=== PATIENT | male | born 1950 | race Caucasian/White ===

== ENCOUNTER 2022-03-05 14:01 | Inpatient (IN) ==
[2022-03-05] MEDS ORDERED: SODIUM CHLORIDE 0.9% 1,000 ML IV STA (14:56)
[2022-03-05 16:08] LABS: Bilirubin,Urine Negative (Negative); Blood, Urine Large mg/dL (Negative); Glucose,Urine (UA) Negative (Negative); Ketones,Urine 15 mg/dL (Negative); Nitrite,Urine Positive (Negative); Protein,Urine 30 mg/dL (Negative); Urine Appearance CLOUDY (Clear); Urine Color Yellow (Yellow); Urine Urobilinogen 0.2 eU/dL (<2.0)
[2022-03-05 16:11] LABS: Amorphous Crystals,Urine Occasional /HPF (Few); Mucus,Urine Few /LPF (Occasional); RBC,Urine 23 /HPF (0-4)
[2022-03-05 16:14] LABS: Basophils % 0.1 % (0.0-0.8); Eosinophils % 0.1 % (0.00-10.9); Hematocrit 31.5 VOL% (42.0-52.0); Immature Granulocytes % 0.8 %; Immature Granulocytes Absolute 0.09 #; Lymphocytes # 1.1 10*3/uL (1.4-4.0); Lymphocytes % 9.6 % (21.2-54.2); Mean Corpuscular HGB Conc 31.7 GM/DL (32-36); Mean Corpuscular Volume 78.6 FL (87-102); Mean Platelet Volume 9.2 FL (9.6-12.0); Monocytes # 0.4 10*3/uL (0.11-0.8); Monocytes % 3.4 % (1.7-12.7); Platelet Count 296 T/CUMM (130-400); Red Blood Count 4.01 MC/CUMM (3.8-5.5); Red Cell Distribution Width 15.9 % (9.3-17.3); White Blood Count 11.9 T/CUMM (4-12)
[2022-03-05 16:27] LABS: Alanine Aminotransferase 12 U/L (16-61); Albumin 1.8 G/DL (3.4-5.0); Alkaline Phosphatase 86 U/L (45-117); Amylase 18 U/L (25-115); Aspartate Amino Transferase 20 U/L (0-37); Bilirubin,Total < 0.39 MG/DL (0.20-1.00); Blood Urea Nitrogen 12 MG/DL (7-18); Carbon Dioxide 25 MMOL/L (21-32); Chloride 92 MMOL/L (98-107); Glucose 80 MG/DL (74-106); Osmolality,Calculated 245.8 MOS/KG (273-304); Potassium 4.5 MMOL/L (3.5-5.1); Sodium 123 MMOL/L (136-145); Total Protein 6.5 G/DL (6.4-8.2)
[2022-03-05] MEDS ORDERED: cefTRIAXone 1,000 MG in SODIUM CHLORIDE 0.9% 100 ML IV STA (17:03)
[2022-03-05] MEDS ORDERED: ONDANSETRON 4 MG/2 ML VIAL IV STA ×2 (17:07→17:28)
[2022-03-05] MEDS ORDERED: hydrALAZINE 20 MG/1 ML VIAL IV PRN (18:03)
[2022-03-05] MEDS ORDERED: ONDANSETRON 4 MG/2 ML VIAL IV PRN (18:03)
[2022-03-05] MEDS ORDERED: DOCUSATE SODIUM 100 MG CAPSULE PO PRN (18:03)
[2022-03-05] MEDS ORDERED: ACETAMINOPHEN 325 MG TABLET PO PRN (18:03)
[2022-03-05] MEDS: SODIUM CHLORIDE 0.9% 1,000 ML IV SCH (18:50)
[2022-03-05] MEDS: ALBUTEROL 2.5 MG/3 ML NEB RESP TX SCH (19:16)
[2022-03-05] MEDS: AZITHROMYCIN INJ 500 MG in SODIUM CHLORIDE 0.9% 250 ML IV SCH (20:32)
[2022-03-05] MEDS: ENOXAPARIN 40 MG/0.4 ML SYRINGE SUBCUT SCH (21:10)
[2022-03-05] MEDS ORDERED: SODIUM CHLORIDE 0.9% 1,000 ML IV ONE (23:32)
[2022-03-06] MEDS: ALBUTEROL 2.5 MG/3 ML NEB RESP TX SCH ×4 (02:15→21:06)
[2022-03-06 05:09] LABS: Basophils % 0.1 % (0.0-0.8); Hemoglobin 9.2 GM/DL (14.0-18.0); Immature Granulocytes % 1.3 %; Immature Granulocytes Absolute 0.18 #; Lymphocytes # 0.9 10*3/uL (1.4-4.0); Mean Corpuscular HGB Conc 30.7 GM/DL (32-36); Mean Corpuscular Volume 81.7 FL (87-102); Mean Platelet Volume 8.9 FL (9.6-12.0); Monocytes # 0.4 10*3/uL (0.11-0.8); Neutrophils % 88.6 % (38.7-73.9); Platelet Count 283 T/CUMM (130-400); Red Blood Count 3.67 MC/CUMM (3.8-5.5); White Blood Count 13.4 T/CUMM (4-12)
[2022-03-06 06:28] LABS: Blood Urea Nitrogen 11 MG/DL (7-18); Calcium 7.9 MG/DL (8.5-10.1); Carbon Dioxide 21 MMOL/L (21-32); Chloride 97 MMOL/L (98-107); Cholesterol 99 MG/DL (50-200); Glucose 81 MG/DL (74-106); HDL Cholesterol 32 MG/DL (40-60); Osmolality,Calculated 252.2 MOS/KG (273-304); Potassium 3.9 MMOL/L (3.5-5.1); Risk Ratio 3.09; Sodium 127 MMOL/L (136-145); Thyroid Stimulating Hormone 0.036 uIU/ml (0.358-3.74); Triglycerides 43 MG/DL (2-150); VLDL Cholesterol 8.6 MG/DL
[2022-03-06] MEDS ORDERED: cefTRIAXone 1,000 MG in SODIUM CHLORIDE 0.9% 100 ML IV SCH (09:00)
[2022-03-06 09:14] LABS: Free T4 (Free Thyroxine) 1.72 NG/DL (0.76-1.46)
[2022-03-06] MEDS: PANTOPRAZOLE 40 MG VIAL IV SCH (21:08)
[2022-03-06] MEDS: ENOXAPARIN 40 MG/0.4 ML SYRINGE SUBCUT SCH (21:08)
[2022-03-06] MEDS: AZITHROMYCIN INJ 500 MG in SODIUM CHLORIDE 0.9% 250 ML IV SCH (21:09)
[2022-03-06] MEDS: TRIAMCINOLONE 0.1% CREAM 15 GM TUBE TOP SCH (22:30)
[2022-03-07] MEDS: ALBUTEROL 2.5 MG/3 ML NEB RESP TX SCH ×4 (00:49→19:38)
[2022-03-07] MEDS: SODIUM CHLORIDE 0.9% 1,000 ML IV SCH ×2 (04:54→04:55)
[2022-03-07 06:00] LABS: Basophils % 0.1 % (0.0-0.8); Immature Granulocytes % 1.2 %; Immature Granulocytes Absolute 0.26 #; Lymphocytes # 0.7 10*3/uL (1.4-4.0); Lymphocytes % 3.2 % (21.2-54.2); Mean Corpuscular Volume 82.2 FL (87-102); Mean Platelet Volume 8.9 FL (9.6-12.0); Monocytes # 0.5 10*3/uL (0.11-0.8); Monocytes % 2.3 % (1.7-12.7); Neutrophils % 93.2 % (38.7-73.9); Platelet Count 294 T/CUMM (130-400); Red Blood Count 3.53 MC/CUMM (3.8-5.5); Red Cell Distribution Width 16.1 % (9.3-17.3); White Blood Count 22.6 T/CUMM (4-12)
[2022-03-07 06:39] LABS: Lymphocytes 1 % (20-55); Platelet Estimate Adequate; Total Cells Counted 100
[2022-03-07 06:40] LABS: Hypochromia Slight; Microcytosis Slight
[2022-03-07 07:18] LABS: Blood Urea Nitrogen 9 MG/DL (7-18); Calcium 7.9 MG/DL (8.5-10.1); Carbon Dioxide 18 MMOL/L (21-32); Chloride 104 MMOL/L (98-107); Glucose 69 MG/DL (74-106); Osmolality,Calculated 254.9 MOS/KG (273-304); Sodium 129 MMOL/L (136-145)
[2022-03-07] MEDS: ALPRAZolam 0.25 MG TABLET PO PRN (10:13)
[2022-03-07] MEDS: PANTOPRAZOLE 40 MG VIAL IV SCH (10:40)
[2022-03-07] MEDS: MEROPENEM 500 MG in SODIUM CHLORIDE 0.9% 100 ML IV SCH ×3 (10:41→21:35)
[2022-03-07] MEDS: MELOXICAM 7.5 MG TABLET PO SCH ×2 (10:42→11:10)
[2022-03-07] MEDS: DOCUSATE SODIUM 100 MG CAPSULE PO SCH ×3 (10:43→21:34)
[2022-03-07] MEDS: NYSTATIN OINT 15 GM TUBE TOP SCH ×2 (11:51→21:36)
[2022-03-07] MEDS: GENTAMICIN 0.1% OINT 15 GM TUBE TOP SCH ×2 (11:51→21:45)
[2022-03-07] MEDS: TRIAMCINOLONE 0.1% CREAM 15 GM TUBE TOP SCH ×2 (11:51→21:36)
[2022-03-07] MEDS: CYCLOBENZAPRINE 10 MG TABLET PO SCH ×2 (14:22→21:35)
[2022-03-07] MEDS: SENNA 8.6 MG TABLET PO SCH (21:34)
[2022-03-07] MEDS: DOXEPIN 25 MG CAPSULE PO SCH (21:34)
[2022-03-07] MEDS: AZITHROMYCIN INJ 500 MG in SODIUM CHLORIDE 0.9% 250 ML IV SCH (21:35)
[2022-03-07] MEDS: ENOXAPARIN 40 MG/0.4 ML SYRINGE SUBCUT SCH (21:38)
[2022-03-08] MEDS: ALBUTEROL 2.5 MG/3 ML NEB RESP TX SCH ×4 (00:15→19:55)
[2022-03-08] MEDS: MEROPENEM 500 MG in SODIUM CHLORIDE 0.9% 100 ML IV SCH ×4 (04:46→20:20)
[2022-03-08] MEDS: SODIUM CHLORIDE 0.9% 1,000 ML IV SCH (04:46)
[2022-03-08] MEDS ORDERED: LACTATED RINGERS 500 ML IV ONE ×2 (05:22→06:16)
[2022-03-08 06:49] LABS: Basophils % 0.1 % (0.0-0.8); Hematocrit 30.4 VOL% (42.0-52.0); Hemoglobin 9.3 GM/DL (14.0-18.0); Immature Granulocytes Absolute 0.15 #; Lymphocytes # 0.6 10*3/uL (1.4-4.0); Lymphocytes % 3.8 % (21.2-54.2); Mean Corpuscular HGB Conc 30.6 GM/DL (32-36); Mean Corpuscular Volume 81.7 FL (87-102); Mean Platelet Volume 8.9 FL (9.6-12.0); Monocytes # 0.4 10*3/uL (0.11-0.8); Monocytes % 2.4 % (1.7-12.7); Neutrophils % 92.7 % (38.7-73.9); Platelet Count 270 T/CUMM (130-400); Red Blood Count 3.72 MC/CUMM (3.8-5.5); Red Cell Distribution Width 16.6 % (9.3-17.3); White Blood Count 15.4 T/CUMM (4-12)
[2022-03-08 07:10] LABS: Calcium 7.9 MG/DL (8.5-10.1); Osmolality,Calculated 267.2 MOS/KG (273-304); Potassium 2.9 MMOL/L (3.5-5.1)
[2022-03-08 07:20] LABS: Hypochromia Slight; Lymphocytes 1 % (20-55); Microcytosis Slight; Platelet Estimate Adequate; Total Cells Counted 100
[2022-03-08] MEDS ORDERED: POTASSIUM CHLORIDE 20 MEQ TABLET PO PRN (07:39)
[2022-03-08] MEDS ORDERED: MIDAZOLAM 2 MG/2 ML VIAL ONE (07:53)
[2022-03-08] MEDS ORDERED: MIDAZOLAM 2 MG/2 ML VIAL IV ONE (07:58)
[2022-03-08] MEDS ORDERED: MAGNESIUM SULF RIDER 2 GM/50 ML PREMIX IV ONE (08:24)
[2022-03-08] MEDS ORDERED: SODIUM CHLORIDE 0.9% 1,000 ML IV ONE ×2 (08:33→10:18)
[2022-03-08] MEDS ORDERED: NOREPINEPHRINE 8 MG in SODIUM CHLORIDE 0.9% 242 ML IV PRN (10:18)
[2022-03-08] MEDS: PANTOPRAZOLE 40 MG VIAL IV SCH (11:10)
[2022-03-08] MEDS: HYDROCORTISONE 100 MG VIAL IV SCH ×2 (11:10→18:03)
[2022-03-08] MEDS: MELOXICAM 7.5 MG TABLET PO SCH (11:11)
[2022-03-08] MEDS: CYCLOBENZAPRINE 10 MG TABLET PO SCH ×3 (11:12→20:19)
[2022-03-08] MEDS: DOCUSATE SODIUM 100 MG CAPSULE PO SCH ×2 (11:12→20:19)
[2022-03-08] MEDS: PHENYLEPHRINE DRIP 40 MG/250 ML PREMIX IV PRN ×2 (12:01→22:59)
[2022-03-08] MEDS: GENTAMICIN 0.1% OINT 15 GM TUBE TOP SCH ×2 (12:03→20:20)
[2022-03-08] MEDS: TRIAMCINOLONE 0.1% CREAM 15 GM TUBE TOP SCH ×2 (12:03→20:20)
[2022-03-08] MEDS: NYSTATIN OINT 15 GM TUBE TOP SCH ×2 (12:03→20:20)
[2022-03-08] MEDS: POTASSIUM CHLORIDE RIDER 10 MEQ/100 ML PREMIX IV PRN ×5 (18:03→22:21)
[2022-03-08] MEDS: DOXEPIN 25 MG CAPSULE PO SCH (20:19)
[2022-03-08] MEDS: SENNA 8.6 MG TABLET PO SCH (20:19)
[2022-03-08] MEDS: ENOXAPARIN 40 MG/0.4 ML SYRINGE SUBCUT SCH (20:19)
[2022-03-08] MEDS: AZITHROMYCIN INJ 500 MG in SODIUM CHLORIDE 0.9% 250 ML IV SCH (20:20)
[2022-03-08] MEDS: DANTROLENE 25 MG PO SCH ×2 (20:21)
[2022-03-09] MEDS: ALPRAZolam 0.25 MG TABLET PO PRN (00:11)
[2022-03-09] MEDS: ALBUTEROL 2.5 MG/3 ML NEB RESP TX SCH ×3 (00:42→12:26)
[2022-03-09] MEDS: PHENYLEPHRINE DRIP 40 MG/250 ML PREMIX IV PRN ×3 (02:27→11:03)
[2022-03-09 03:52] LABS: Basophils # 0.1 10*3/uL (0.0-0.2); Basophils % 0.3 % (0.0-0.8); Hematocrit 32.3 VOL% (42.0-52.0); Hemoglobin 9.7 GM/DL (14.0-18.0); Immature Granulocytes % 2.4 %; Immature Granulocytes Absolute 0.65 #; Lymphocytes # 0.2 10*3/uL (1.4-4.0); Lymphocytes % 0.7 % (21.2-54.2); Mean Corpuscular Volume 82.4 FL (87-102); Monocytes # 0.3 10*3/uL (0.11-0.8); NRBC # 0.04 10*3/uL; Neutrophils % 95.6 % (38.7-73.9); Platelet Count 411 T/CUMM (130-400); Red Blood Count 3.92 MC/CUMM (3.8-5.5); Red Cell Distribution Width 17.1 % (9.3-17.3); White Blood Count 26.9 T/CUMM (4-12)
[2022-03-09 04:09] LABS: Osmolality,Calculated 268.1 MOS/KG (273-304); Potassium 4.4 MMOL/L (3.5-5.1)
[2022-03-09 04:10] LABS: Lymphocytes 2 % (20-55); Total Cells Counted 100
[2022-03-09 04:11] LABS: Burr Cells Few; Hypochromia Slight; Microcytosis Slight
[2022-03-09 04:12] LABS: Acanthocytes Few; Polychromasia Slight; Target Cells Slight
[2022-03-09] MEDS: MEROPENEM 500 MG in SODIUM CHLORIDE 0.9% 100 ML IV SCH ×2 (05:38→09:22)
[2022-03-09] MEDS: HYDROCORTISONE 100 MG VIAL IV SCH ×2 (05:38→09:34)
[2022-03-09] MEDS: SODIUM CHLORIDE 0.9% 1,000 ML IV SCH (06:37)
[2022-03-09] MEDS ORDERED: LIDOCAINE 1% 20 ML VIAL MISC INJ ONE (08:00)
[2022-03-09] MEDS ORDERED: MIDAZOLAM 2 MG/2 ML VIAL IV ONE (08:00)
[2022-03-09] MEDS ORDERED: LIDOCAINE 2% VISCOUS 100 ML BOTTLE SWISH/SPIT ONE (08:00)
[2022-03-09] MEDS ORDERED: LIDOCAINE 2% 20 ML VIAL RESP TX ONE (08:00)
[2022-03-09 09:00] LABS: PT Patient Result 10.6 SECS (10.1-12.1)
[2022-03-09] MEDS ORDERED: DORNASE ALFA 2.5 MG/2.5 ML VIAL RESP TX SCH (09:00)
[2022-03-09] MEDS: PANTOPRAZOLE 40 MG VIAL IV SCH (09:20)
[2022-03-09] MEDS: GENTAMICIN 0.1% OINT 15 GM TUBE TOP SCH (09:53)
[2022-03-09] MEDS: NYSTATIN OINT 15 GM TUBE TOP SCH (09:53)
[2022-03-09] MEDS: TRIAMCINOLONE 0.1% CREAM 15 GM TUBE TOP SCH (09:54)
[2022-03-09 09:55] VITALS: BP 68/36
[2022-03-09 11:59] LABS: Glucose,Pleural Fluid 100 MG/DL; LDH,Body Fluid 56 U/L; Total Protein,Body Fluid < 2.0 G/DL
[2022-03-09] MEDS: MELOXICAM 7.5 MG TABLET PO SCH (12:30)
[2022-03-09] MEDS: DOCUSATE SODIUM 100 MG CAPSULE PO SCH (12:30)
[2022-03-09] MEDS: CYCLOBENZAPRINE 10 MG TABLET PO SCH (12:30)
[2022-03-09 12:54] LABS: RBC,Pleural Fluid < 1 T/CUMM
[2022-03-09 12:58] LABS: Lymphocytes,Pleural Fluid 74 %; Monocytes,Pleural Fluid 6 %; Neutrophils,Pleural Fluid 20 %
[2022-03-09] MEDS ORDERED: ATROPINE 1 MG/10 ML SYRINGE IV ONE ×2 (13:00→13:23)
[2022-03-09] MEDS ORDERED: ATROPINE 1 MG/10 ML SYRINGE ONE (13:00)
[2022-03-09] MEDS ORDERED: flumazeniL 0.5 MG/5 ML VIAL IV ONE ×2 (13:06→13:08)
[2022-03-09] MEDS ORDERED: DOPamine 800 MG/250 ML PREMIX IV ONE (13:24)
[2022-03-09] MEDS ORDERED: DOPamine 800 MG/250 ML PREMIX IV PRN (13:24)
[2022-03-12 21:51] LABS: M. Tuberculosis PCR Result Negative (Negative)
== END 2022-03-09 13:42 | disposition expired | DRG 193 ==
LOC: EDBD → EDUNIT# → N.ED 14:01 → N.EDINP 17:41 → SUATTDRO 17:41 → N.5E 21:55 → N.CC 03-08 07:36
PROVIDERS: ADMIT Internal Medicine; ATTEND Family Medicine